=== PATIENT | male | born 1970 | race Caucasian/White ===

== ENCOUNTER 2021-01-01 17:37 | Emergency (ER) | payer OTHER, SELFPAY ==
--- NOTE | ~2021-01-01 | XR_ITS ---
EXAMINATION: XR finger 2nd RT min 2V EXAM DATE: 01/01/2021 18:27 INDICATION: No known recent injury provided at this time. Pain of the right 2nd proximal interphalang eal joint. TECHNIQUE: Right 2nd finger frontal, lateral and oblique projections obtained and reviewed. There is no prior study for comparison. FINDINGS: There are no acute right 2nd finger fractures or dislocations identified. The joint spaces are uniform, no bony productive changes or erosions. There is no subcutaneous gas. There is soft tis harish swelling over the finger. There are no radiopaque foreign bodies. IMPRESSION: 1. Right 2nd finger exam without acute osseous findings. 2. Soft tissue swelling. Reviewed, dictated and finalized at location G.
[2021-01-01 17:46] VITALS: BP 124/83; PULSE 100; RESP 14; TEMP 37.1; O2SAT 98
--- NOTE | 2021-01-01 18:11 | ED.UPPEXIN ---
HPI - Extremity Injury (Upper) General Chief Complaint: Wound/Laceration Stated Complaint: right pointer finger injury Source: patient Mode of arrival: ambulatory Limitations: no limitations History of Present Illness HPI narrative: Patient is a 50-year-old male who presents complaining of pain and swelling to right index finger. Patient reports he awoke Sunday morning with swelling and pain to right index finger. He reports increasing pain and swelling over the past few days. He denies injury. He denies fever. Unknown tetanus status at this time. Patient denies all other complaints at this time. MD complaint: injury to: right and finger Related Data Allergies Allergy/AdvReac Type Severity Reaction Status Date / Time No Known Allergies Allergy Verified 01/01/21 18:09 Review of Systems Review of Systems: Narrative: CONSTITUTIONAL: Denies fever, chills, or sweats. EYES: Denies visual changes, redness, or discharge. ENT: Denies rhinorrhea, congestion, sore throat, or otalgia. CARDIOVASCULAR: Denies chest pain, palpitations, or edema. RESPIRATORY: Denies cough or dyspnea. GASTROINTESTINAL: Denies abdominal pain, nausea, vomiting, or diarrhea. GENITOURINARY: Denies dysuria or hematuria. SKIN: Reports swelling and redness to right index finger MUSCULOSKELETAL: Denies back pain, joint pain, or myalgia. NEUROLOGIC: Denies headache, numbness, dizziness, or weakness. PSYCHIATRIC: Denies anxiety or depression. [facility] Surgical History Surgical History H/O rectal polypectomy Hx of tonsillectomy Social History Social History (Updated 01/01/21 @ 18:15 by JONELLE Michel) Smoking status: Current every day smoker Tobacco type: cigarettes Alcohol intake: current Alcohol use details: Occasional Substance use: never Living arrangements: with family Occupation/Education: occupation Comments At the time of signature, I have reviewed and agree with nursing past medical, surgical, social, and family history unless otherwise noted. Please see nursing chart for further information. There is no relevant family history pertinent to the presenting complaint. Exam Narrative: Exam Narrative: GENERAL: Well-appearing, well-nourished, and in no acute distress. HEAD: Normocephalic, atraumatic. EYES: EOMI. No redness or drainage. Conjunctiva are normal. ENT: Mucous membranes pink and moist. CHEST: No respiratory distress. HEART: Regular rate and rhythm. EXTREMITIES: Normal range of motion. SKIN: Erythema and edema to right index finger, decreased range of motion, purulent drainage noted at PIP. NEURO: No focal deficits. Alert and oriented x3. Gait steady. PSYCH: Normal affect. No signs of depression or anxiety. Course Vital Signs Vital signs: Vital Signs Temperature 37.1 C 01/01/21 17:46 Pulse Rate 100 01/01/21 17:46 Respiratory Rate 14 01/01/21 17:46 Blood Pressure 124/83 01/01/21 17:46 Pulse Oximetry 98 01/01/21 17:46 Temperature 37.1 C 01/01/21 17:46 Pulse Rate 100 01/01/21 17:46 Respiratory Rate 14 01/01/21 17:46 Blood Pressure 124/83 01/01/21 17:46 Pulse Oximetry 98 01/01/21 17:46 Reviewed MDM - Extremity Injury (Upper) MDM Narrative Medical decision making narrative: Patient's x-ray is negative. Discussed with patient most likely cellulitis to finger. Discussed red flags with patient and patient aware when to seek more care. Patient started on antibiotics at this time. Patient is stable for discharge home with outpatient follow-up as needed. Differential Diagnosis Differential diagnosis: Likely other (Sprain, strain, contusion, cellulitis, abscess, osteomyelitis) Imaging Data Radiologist's impression: ITS Impressions Finger X-Ray 01/01/21 18:35 IMPRESSION: 1. Right 2nd finger exam without acute osseous findings. 2. Soft tissue swelling. Critical Care Time Critical Care Time
[2021-01-01] MEDS: TETANUS,DIPHTHERIA,AC PERTUSSIS ADULT (0.5 ML) BOOSTRIX IM (18:27)
== END 2021-01-01 18:47 | disposition home or self-care (01) ==
PROVIDERS: Emergency Provider Nurse Practitioner
DX: L03.011 Cellulitis of right finger (principal); Z23 Encounter for immunization; F17.210 Nicotine dependence, cigarettes, uncomplicated
CPT/HCPCS: 73140; 87070; 87077; 87205; 90471; 90715; 99213; G0463